=== PATIENT | female | born 1980 | race Caucasian/White ===

== ENCOUNTER 2020-04-22 17:05 | Emergency (ER) | payer OTHER ==
[~2020-04-22] VITALS: Ht 170.2 cm; Wt 65.8 kg
[2020-04-22] MEDS ORDERED: NORVASC5 M1 PO (17:18)
[2020-04-22 17:21] LABS: HEMATOCRIT 44.6 % (37.0-47.0); HEMOGLOBIN 15.7 gm/dL (12.0-15.0); MCH 34.9 pg (26.0-34.0); MCHC 35.3 g/dL (28.0-37.0); MCV 98.8 fL (80.0-100.0); RBC 4.51 mil/uL (4.20-5.00); RDW 12.4 % (10.5-14.5); WBC 8.7 thou/uL (4.0-11.0)
[2020-04-22 17:31] LABS: ANION GAP 9 mmol/L (7-16); BUN 10 mg/dL (7-18); CALCIUM 9.5 mg/dL (8.5-10.1); CHLORIDE 103 mmol/L (98-107); CO2 27 mmol/L (21-32); CREATININE 0.9 mg/dL (0.6-1.0); GLUCOSE 100 mg/dL (74-106); POTASSIUM 3.7 mmol/L (3.5-5.1); SODIUM 139 mmol/L (136-145)
[2020-04-22 17:39] LABS: TROPONIN-I <0.06 ng/mL (<0.06)
[2020-04-22 18:42] VITALS: BP 119/74
[2020-04-22] MEDS ORDERED: IBUPROFEN 800800 M1 PO (18:46)
--- NOTE | 2020-04-23 07:57 | EKG ---
[facility] [place] [address] ELECTROCARDIOGRAM REPORT Name: TERRENCE SALCIDO Room #: DEP [facility] [id number] Admission: 04/22/20 Attend Phys: Discharge: 04/22/20 Date of : 80 Report #: [id number] THIS REPORT FOR: cc: Zelda Arshad Christine L. DO Lundgren, Craig H. 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: issa : 1980 Requested By: Sunita Mcleod Order Number: [id number] MD: Jose Guadalupe Moreau Measurements Intervals [place] Rate: 89 P: 80 OK: 139 QRS: 74 QRSD: 86 T: 62 QT: 336 QTc: 409 Interpretive Statements Sinus rhythm Normal tracing No previous ECG available for comparison Electronically Signed On 04-23-2020 7:57:06 CDT by Jose Guadalupe Moreau [email or web address] <ELECTRONICALLY SIGNED> By: Jose Guadalupe Moreau MD, [facility] 04/23/20 [id number] 26 Jose Guadalupe Moreau MD, [facility] /EPI
== END 2020-04-22 19:00 | disposition home or self-care (01) ==
LOC: ER 17:05
PROVIDERS: Physician Assistant
DX: S20.211A Contusion of right front wall of thorax, initial encounter (principal); S80.812A Abrasion, left lower leg, initial encounter; S80.811A Abrasion, right lower leg, initial encounter; M25.512 Pain in left shoulder; F17.210 Nicotine dependence, cigarettes, uncomplicated; Z88.0 Allergy status to penicillin; I10 Essential (primary) hypertension; V49.9XXA Car occupant (driver) (passenger) injured in unspecified traffic accident, initial encounter; Y93.89 Activity, other specified; Y92.89 Other specified places as the place of occurrence of the external cause; Y99.8 Other external cause status